=== PATIENT | female | born 1940 | race Asian ===

== ENCOUNTER 2016-11-01 15:15 | Outpatient (RCR) | payer MEDICARE, OTHER ==
[~2016-11-01 15:15] MED LIST: ACTOS30 MG PO; CALCIUM CITRATE1 TA7 PO; CORDARONE200 MG/TAB PO; COUMADIN 5MG5 MG/TAB PO; DUO-KAPS1 CAP PO; FOSAMAX 70MG TA70 MG PO; GINKGO3 PO; GLUCOPHAGE500 MG/TAB PO; LEVOXYL0.05 MG PO; LIPITOR 10MG10 MG PO; LOPRESSOR 225 MG/TAB PO; LOVENOX 6060 MG/0.6 SQ; MAGNESIUM CITR100 MG PO; METROGEL GEL45 GM TP; ONE DAILY1 TA1 PO; PREDNISONE20 MG PO; PROTONIX 40MG T40 MG PO; SEPTRA DS 8001 TAB PO; SYNTHROID0.05 MG/TA PO; TESSALON PERLE200 MG PO; VENTOLIN0.09 MG IH; VESICARE 5MG5 MG PO; VITAMIN C500 MG PO; VITAMIN D 50,1.25 MG PO; ZITHROMAX 250M250 MG PO; ZITHROMAX Z PA250 MG PO
== END 2016-11-03 15:10 | disposition still patient (30) ==
LOC: MKS.ESL.OT 15:15
DX: S42.492D Other displaced fracture of lower end of left humerus, subsequent encounter for fracture with routine healing (principal); X58.XXXD Exposure to other specified factors, subsequent encounter
CPT/HCPCS: G8985-GO; G8986-GO; G8987-GO; G8988-GO

== ENCOUNTER 2017-06-17 15:00 | Outpatient (RCR) | payer MEDICARE, OTHER | END 2017-06-20 08:22 | disposition home or self-care (01) | LOC: MKS.ESL.PT 15:00 | DX: S46.911A Strain of unspecified muscle, fascia and tendon at shoulder and upper arm level, right arm, initial encounter (principal); Z87.81 Personal history of (healed) traumatic fracture; Z90.710 Acquired absence of both cervix and uterus; Z90.49 Acquired absence of other specified parts of digestive tract; Z90.89 Acquired absence of other organs; Z79.01 Long term (current) use of anticoagulants | CPT/HCPCS: G0283-GP; G8990-GP; G8991-GP; G8992-GP ==

== ENCOUNTER 2017-09-08 11:59 | Emergency (ER) | payer MEDICARE ==
[~2017-09-08] VITALS: Ht 162.6 cm; Wt 70.2 kg
[2017-09-08 12:01] VITALS: TEMP 98
[2017-09-08 12:42] LABS: BASO % 0.6 % (0.0-2.0); EOS # 0.1 (0.0-0.7); EOS % 1.2 % (0-4.0); GRAN # 4.6 (1.4-6.5); GRAN % 68.4 % (42.2-75.2); HEMATOCRIT 42.2 % (37.0-47.0); HEMOGLOBIN 13.7 g/dl (12.5-16.0); LYMPH # 1.5 (1.2-3.4); MEAN CELL VOLUME 100 fl (80.0-100.0); MEAN CORPUSCULAR HEMOGLOBIN 33 pg (27.0-31.0); MEAN CORPUSCULAR HGB CONC 33 g/dl (33.0-37.0); MEAN PLATELET VOLUME 10.2 fl (7.4-10.4); MONO # 0.5 (0.1-0.6); MONO % 7.5 % (1.7-9.3); PLATELET COUNT 192 K/mm3 (130-400); RED BLOOD COUNT 4.21 M/mm3 (4.10-5.30); WHITE BLOOD COUNT 6.7 K/mm3 (4.8-10.8)
[2017-09-08 12:45] LABS: INR 1.4 (0.8-3.0); PROTHROMBIN TIME 15.9 SECONDS (9.7-12.8)
[2017-09-08 12:46] LABS: ADJUSTED CALCIUM 9.3 mg/dL (8.4-10.2); ALANINE AMINOTRANSFERASE 29 U/L (9-52); ALBUMIN 4.4 gm/dL (3.5-5.0); ALKALINE PHOSPHATASE 87 U/L (50-136); ANION GAP 7 mmol/L (7-16); BILIRUBIN,TOTAL 0.7 mg/dL (0.0-1.0); BLOOD UREA NITROGEN 16 mg/dL (7-17); CALCIUM 9.6 mg/dL (8.4-10.2); CARBON DIOXIDE 29 mmol/L (22-30); CHLORIDE 105 mmol/L (98-107); CREATININE, serum 0.56 mg/dL (0.52-1.25); GLUCOSE 121 mg/dL (74-106); POTASSIUM 4.6 mmol/L (3.4-5.0); SODIUM 141 mmol/L (137-145); TOTAL PROTEIN 7.2 gm/dL (6.4-8.2)
[2017-09-08] MEDS ORDERED: CORDARONE200 MG/TAB PO (12:54)
[2017-09-08] MEDS ORDERED: VITAMIN D 50,1.25 MG PO (12:55)
[2017-09-08] MEDS ORDERED: ACTOS30 MG PO (12:55)
[2017-09-08] MEDS ORDERED: MYRBETR50MG PO (12:56)
[2017-09-08] MEDS ORDERED: PRILOSEC 20MG20 MG PO (12:56)
[2017-09-08 13:03] LABS: TROPONIN-I < 0.012 ng/mL (0.000-0.034)
[2017-09-08] MEDS ORDERED: ANTIVERT 25MG25 MG PO (14:46)
[2017-09-08 15:45] VITALS: BP 132/65; PULSE 67
== END 2017-09-08 15:54 | disposition home or self-care (01) ==
LOC: COL.ER 11:59
PROVIDERS: Nurse Practitioner
DX: R42 Dizziness and giddiness (principal); R51 Headache; R07.9 Chest pain, unspecified; I48.91 Unspecified atrial fibrillation; E11.9 Type 2 diabetes mellitus without complications; Z79.84 Long term (current) use of oral hypoglycemic drugs; E78.5 Hyperlipidemia, unspecified; E03.9 Hypothyroidism, unspecified; Z79.01 Long term (current) use of anticoagulants

== ENCOUNTER → 2018-06-07 | Outpatient (CLI) | payer MEDICARE ==
[~2018-06-07] MED LIST changes: +ANTIVERT 25MG25 MG PO; +MYRBETR50MG PO; +PRILOSEC 20MG20 MG PO
== END ==
LOC: COL.LAB 11:25
DX: J32.9 Chronic sinusitis, unspecified (principal)

== ENCOUNTER → 2018-09-28 | Outpatient (CLI) | payer MEDICARE | LOC: COL.RAD 09:57 | DX: N28.1 Cyst of kidney, acquired (principal); K76.9 Liver disease, unspecified; R93.5 Abnormal findings on diagnostic imaging of other abdominal regions, including retroperitoneum; Z90.49 Acquired absence of other specified parts of digestive tract ==

== ENCOUNTER 2019-06-21 10:54 | Emergency (ER) | payer MEDICARE ==
[~2019-06-21] VITALS: Ht 154.9 cm; Wt 68.2 kg
[2019-06-21 11:21] VITALS: BP 137/65; PULSE 61; TEMP 97.1
[2019-06-21] MEDS ORDERED: FORTAMET500 M1 PO (11:47)
[2019-06-21] MEDS ORDERED: ACTOS30 MG PO (11:48)
== END 2019-06-21 12:45 | disposition left against medical advice (07) ==
LOC: COL.ER 10:54
DX: S32.020A Wedge compression fracture of second lumbar vertebra, initial encounter for closed fracture (principal); E11.9 Type 2 diabetes mellitus without complications; I10 Essential (primary) hypertension; Z79.84 Long term (current) use of oral hypoglycemic drugs; M19.90 Unspecified osteoarthritis, unspecified site; Z90.49 Acquired absence of other specified parts of digestive tract; Z90.89 Acquired absence of other organs; Z90.710 Acquired absence of both cervix and uterus; Z88.0 Allergy status to penicillin; Z88.5 Allergy status to narcotic agent; Z79.01 Long term (current) use of anticoagulants; X50.0XXA Overexertion from strenuous movement or load, initial encounter